=== PATIENT | male | born 1980 | race Caucasian/White ===

== ENCOUNTER 2017-05-20 09:09 | Emergency (ER) | payer SELFPAY ==
[~2017-05-20] VITALS: Ht 170.1 cm; Wt 68.0 kg
== END 2017-05-20 09:55 | disposition home or self-care (01) ==
LOC: ED 09:09
DX: S05.02XA Injury of conjunctiva and corneal abrasion without foreign body, left eye, initial encounter (principal); X58.XXXA Exposure to other specified factors, initial encounter; Y93.89 Activity, other specified; Y92.89 Other specified places as the place of occurrence of the external cause; Y99.8 Other external cause status; Z88.1 Allergy status to other antibiotic agents